=== PATIENT | female | born 1995 | race Caucasian/White ===

== ENCOUNTER 2017-12-26 23:20 | Emergency (ER) | payer OTHER ==
--- NOTE | 2017-12-26 23:31 | ED Physician Documentation ---
General Adult - HISTORIAN Historian: patient - HPI Stated Complaint: seizure Chief Complaint: Seizure Onset: minutes (30) Timing: better Severity: mild Further Comments: yes (She states she was having a siezure prior to calling 911. She was awake and alert at time of director of perioperative services arrival. Did not have any issues with harm. She states she now has a headache. reports her seizures are not controlled and she is on medications. She states that she is looking at having surgery.) Last known Well Code/Unknown Code: Unknown - ROS CONST: no problems EYES/ENT: none CVS/RESP: none GI/: none MS/SKIN/LYMPH: none NEURO/PSYCH: headache, dizziness - PAST HX Past History: other (seizure disorder, migraines ) Surgeries/Procedures: none Immunizations: UTD Allergies/Adverse Reactions: Allergies Allergy/AdvReac Type Severity Reaction Status Date / Time amoxicillin Allergy Severe Anaphylaxis Verified 12/26/17 23:30 Penicillins Allergy Severe Anaphylaxis Verified 12/26/17 23:30 Sulfa (Sulfonamide Allergy Severe Anaphylaxis Verified 12/26/17 23:30 Antibiotics) Home Medications: Ambulatory Orders Medication Instructions Recorded Levothyroxine Sodium [Synthroid] 0.112 mcg PO D 07/10/16 Nitrofurantoin Monohyd/M-Cryst 100 mg PO Q12H #13 capsule 07/10/16 [Macrobid] Topiramate [Topiramate] 25 mg PO D 07/10/16 Cyclobenzaprine HCl 10 mg PO DIRECTED 12/26/17 [Cyclobenzaprine HCl] Ibuprofen [Advil] 800 mg PO DIRECTED 12/26/17 Ondansetron HCl Rapdis [Zofran ODT] 4 mg SL DIRECTED 12/26/17 - SOCIAL HX Smoking History: non-smoker Alcohol Use: none Drug Use: none - FAMILY HX Family History: No - VITAL SIGNS Vital Signs: Vital Signs Temp Pulse Resp BP Pulse Ox 136/65 07/10/16 22:39 - REVIEWED ASSESSMENTS Nursing Assessment Reviewed: Yes Vitals Reviewed: Yes Progress - Progress Progress: 2330: resting in room with visitors. Denies any pain. DG ED Results Lab/Radiology - Radiology Radiology Impressions: Computed tomography of the head without contrast History: SEIZURE/ HIT HEAD, LT POSTERIOR PAIN Findings: Transverse of brain sections are obtained without contrast revealing normal-sized ventricles and sulci. Johnson white differentiation is intact. There is no intracranial hemorrhage, Mass effect, or fluid collection. The skull is intact. Right greater than left maxillary sinus mucosal thickening is present. Impression: 1. Intact brain and skull. 2. Chronic maxillary sinusitis. Electronically signed on Dec 27, 2017 1:19:06 AM PARER by: Keith White General Adult Physical Exam - PHYSICAL EXAM GENERAL APPEARANCE: mild distress EENT: eye inspection normal, pharynx normal, LISA, TM's nml NECK: normal inspection RESPIRATORY: no resp distress, chest non-tender, breath sounds normal CVS: reg rate & rhythm, heart sounds normal, equal pulses, no murmur ABDOMEN: soft, no organomegaly, normal bowel sounds SKIN: warm/dry, normal color EXTREMITIES: non-tender, normal range of motion, no evidence of injury, no edema NEURO: oriented X3, CN's nml as tested, motor nml, sensation nml, mood/affect nml, cognition normal Discharge Clincal Impression: Seizure Referrals: Primary Doctor,No [Primary Care Provider] - 2 Days Comments: 1. Continue meds as prescribed 2. Notify Neurology about seizures and med side effects 3. Continue log of seizures 4. Return to ER for any concerns Condition: Stable Disposition: 01 HOME, SELF-CARE Decision to Admit: NO Date of Decison to Admit: 12/27/17 Decision Time: 01:45
[2017-12-27 00:32] LABS: BASOPHILS % 0.4 (0.0-1.5); MEAN CORPUSCULAR HEMOGLOBIN 29.7 pg (28.0-34.0); MEAN CORPUSCULAR VOLUME 87.7 fl (80.0-100.0); MONOCYTES % 3.8 % (0.0-11.0); NEUTROPHILS # 8.6 # k/uL (1.4-7.7)
[2017-12-27 00:45] LABS: eGFR (African) > 60; eGFR (Non-African) > 60
[2017-12-27 01:52] VITALS: BP 120/66
[2017-12-27 05:27] LABS: CANNABINOIDS NEGATIVE ng/mL (< 50); METHYLENEDIOXYMETHAMPHETAMINE NEGATIVE ng/mL (<500)
[2017-12-27 05:29] LABS: APPEARANCE,URINE CLOUDY (CLEAR); COLOR,URINE YELLOW (YELLOW); OCCULT BLOOD,URINE 2+ (NEGATIVE); PH URINE 5.5 (5.0 - 8.0); UROBILINOGEN URINE 0.2 Eu (0.2-1.0)
--- NOTE | 2017-12-27 06:30 | Diagnostic Imaging Report ---
MIKHAIL KRAUS [facility] [address] [facility] [address] [id number] Report Submission Date: Dec 27, 2017 1:19:06 AM IMAGING ASSISTANT Patient Study Name: MAXI GLASGOW Date: Dec 27, 2017 12:53:27 AM IMAGING ASSISTANT Modality Type: CT\SR Gender: F Description: CT HEAD S : 89 Institution: [facility] Physician: MIKHAIL KRAUS Computed tomography of the head without contrast History: SEIZURE/ HIT HEAD, LT POSTERIOR PAIN Findings: Transverse of brain sections are obtained without contrast revealing normal-sized ventricles and sulci. Johnson white differentiation is intact. There is no intracranial hemorrhage, Mass effect, or fluid collection. The skull is intact. Right greater than left maxillary sinus mucosal thickening is present. Impression: 1. Intact brain and skull. 2. Chronic maxillary sinusitis. Electronically signed on Dec 27, 2017 1:19:06 AM IMAGING ASSISTANT by: Keith ALEGRE
== END 2017-12-27 01:21 | disposition home or self-care (01) ==
LOC: ED 23:20
DX: R56.9 Unspecified convulsions (principal)
CPT/HCPCS: 70450; 80053; 80377; 81002; 81025; 84703; 85025; 87086; 99283; G0481; S1016